=== PATIENT | male | born 2000 | race Caucasian/White ===

== ENCOUNTER 2023-01-16 09:25 | Emergency (ER) | payer OTHER ==
[2023-01-16] MEDS ORDERED: Tetracaine HCl/PF 0.5% 4 ML Bottle ONE (10:12)
[2023-01-16] MEDS ORDERED: Erythromycin Base 0.5% Ophth Oint 1 GM Tube EYERT ONE (10:18)
== END 2023-01-16 11:07 | disposition home or self-care (01) ==
LOC: MW.ED 09:25
DX: S05.01XA Injury of conjunctiva and corneal abrasion without foreign body, right eye, initial encounter (principal)
CPT/HCPCS: 99283; A9270; J3490